=== PATIENT | male | born 1980 | race Caucasian/White ===

== ENCOUNTER 2016-11-14 15:30 | Outpatient (RCR) | payer BC | END 2016-11-26 | disposition home or self-care (01) | LOC: WSPT | DX: M16.0 Bilateral primary osteoarthritis of hip (principal); Z94.1 Heart transplant status ==

== ENCOUNTER 2017-01-17 16:30 | Outpatient (RCR) | payer BC | END 2017-02-14 12:55 | disposition home or self-care (01) | LOC: WSPT 16:30 | DX: M13.852 Other specified arthritis, left hip (principal); M13.851 Other specified arthritis, right hip ==